=== PATIENT | female | born 2000 | race Two or more races ===

== ENCOUNTER 2021-12-24 13:34 | Emergency (ER) | payer OTHER ==
[~2021-12-24] VITALS: Ht 162.6 cm; Wt 63.6 kg
[2021-12-24] MEDS ORDERED: LIDOCAINE 1% 10 ML VIAL PERC ONE (17:00)
[2021-12-24] MEDS ORDERED: POVIDONE-IODINE 10% 15 ML SOLUTION UD TP ONE (17:00)
[2021-12-24] MEDS ORDERED: PERTUSS(ACELL),DIPH,TET VAC/PF 0.5 ML SYRINGE IM. ONE (17:00)
[2021-12-24] MEDS ORDERED: BACITRACIN 28 GM OINTMENT TP ONE (17:00)
[2021-12-24 18:55] VITALS: BP 129/69
[2021-12-24] MEDS ORDERED: NAPR-1025 PO (18:56)
[2021-12-24] MEDS ORDERED: KETOROLAC TROMETHAMINE 10 MG TABLET PO ONE (19:00)
== END 2021-12-24 19:11 | disposition home or self-care (01) ==
LOC: EMS 13:35
DX: S01.81XA Laceration without foreign body of other part of head, initial encounter (principal); S05.11XA Contusion of eyeball and orbital tissues, right eye, initial encounter; F17.210 Nicotine dependence, cigarettes, uncomplicated; S05.41XA Penetrating wound of orbit with or without foreign body, right eye, initial encounter; Y04.0XXA Assault by unarmed brawl or fight, initial encounter; Y93.89 Activity, other specified; Y92.89 Other specified places as the place of occurrence of the external cause; Y99.8 Other external cause status
CPT/HCPCS: 99284; 70480; 90715; 90471; 12011; J3490